=== PATIENT | female | born 1995 | race Caucasian/White ===

== ENCOUNTER 2017-09-24 13:20 | Outpatient (CLI) | payer BC | END 2017-09-24 13:21 | disposition home or self-care (01) | LOC: BICRAD 13:20 | PROVIDERS: ATTEND Internal Medicine Rheumatology | DX: M25.562 Pain in left knee (principal) ==

== ENCOUNTER 2017-10-13 10:00 | Outpatient (CLI) | payer BC | END 2017-10-13 10:01 | disposition home or self-care (01) | LOC: BICMRI 10:00 | PROVIDERS: ATTEND Internal Medicine Rheumatology | DX: M25.562 Pain in left knee (principal); R60.0 Localized edema ==